=== PATIENT | male | born 1985 | race African-American/Black ===

== ENCOUNTER 2023-08-06 01:23 | Day surgery (SDC) | payer BC, SELFPAY ==
[2023-07-23 15:37] VITALS: BMI 19.1
--- NOTE | 2023-08-04 11:56 | SUR.PREOP ---
Patient called regarding upcoming procedure. Message left for pt regarding him coming in earlier.
--- NOTE | 2023-08-06 10:55 | P.PNAN_ITS ---
Anes - Initial Pre Proc Eval Procedure: Operation Date: 08/06/23 14:30 Proposed Procedures p Flexible Sigmoidoscopy - Erich Dubon MD Date/Time: 08/06/23 10:55 Surgeon: Erich Dubon MD Pre Op Diagnosis: Ulcerative (chronic) proctitis Patient Data Age: 38 Gender: M Height: 1.75 m Weight: 58.6 kg Allergies Allergy/AdvReac Type Severity Reaction Status Date / Time No Known Allergies Allergy Verified 07/23/23 15:54 Home Medications Medication Instructions Recorded Confirmed Type No Home Medications 07/23/23 07/23/23 History Patient hx anesthesia problems: none Family hx anesthesia problems: none Results Review: All pre-operative results and documents have been reviewed as part of the pre- operative evaluation. [facility], [facility] Past Medical History Medical History Ulcerative proctitis Social History Social History Social History: Smoking status: Never smoker Second hand tobacco smoke exposure: No Alcohol intake: never Substance use: never Substance use type: does not use Lack of Transportation: No Lack of Food: Never True Current Housing: I Have Housing Concerned About Future Housing: No Difficulty Paying Gas/Electric Bills: No Difficulty Paying for Meds: No Currently Unemployed: No Education: Decline to Answer Difficulty w/ Childcare or Family Care: No Living arrangements: with family Occupation/Education: occupation Gender identity (if verbalized by the patient): Male Sexual Orientation (if Verbalized by the Patient): Straight or Heterosexual Spiritual care concerns: No Anes - Eval Final PreProcedure Day of Procedure 08/06/23 10:55 Patient weight: normal Heart: regular rate and rhythm Lungs: clear to auscultation Airway: Mallampati scale class II Neurological: alert and oriented Last oral intake: >/= 8 hours ASA classification: II Emergent: no Anesthetic plan: proceed Anesthesia type and monitoring: general GIVS and standard monitoring Results Review: All pre-operative results and documents have been reviewed as part of the pre- operative evaluation. Informed Consent: The patient's anesthetic plan and its attendant risks and benefits were discussed with the patient/family/POA. Questions were solicited and answers pr ovided to the satisfaction of the patient/family/POA.
[2023-08-06 11:00] VITALS: BP 106/72; PULSE 77; RESP 20; TEMP 36.6; O2SAT 100; BMI 18.6
--- NOTE | 2023-08-06 11:26 | SUR.PREOP ---
Pt requesting no anesthesia. Dr. Moyer and Dr. Lao at bedside to discuss.
--- NOTE | 2023-08-06 11:29 | WPDHPUPDATE1 ---
History and Physical Update Update Date/Time: 08/06/23 11:29 History and Physical has been reviewed, including an updated exam of the patient. There are NO changes in the patient's condition. Risks, benefits, and alternatives have been discussed and questions answered. Patient agrees to proceed with procedure.
[2023-08-06] MEDS: LACTATED RINGERS 1,000 ML 150 ML IV CONT (11:32)
[2023-08-06 11:37] VITALS: BP 111/71; PULSE 68; RESP 16; O2SAT 100
[2023-08-06 11:42] VITALS: BP 111/77; PULSE 76; RESP 18; O2SAT 100
[2023-08-06 11:45] VITALS: BP 101/64; PULSE 78; RESP 20; O2SAT 100
[2023-08-06 11:50] VITALS: BP 110/67; PULSE 68; RESP 23; O2SAT 100
--- NOTE | 2023-08-06 12:10 | SUR.PHASEII ---
Patient did not receive anesthesia, patient denies pain or shortness of breath at this time, vital signs stable, patient and family verbalized understanding of all discharge instructions, IV discontinued without difficulty.
== END 2023-08-06 12:15 | disposition home or self-care (01) ==
PROVIDERS: PCP Family Medicine; Visit Provider Internal Medicine Gastroenterology
PROC: 0DJD8ZZ Inspection of Lower Intestinal Tract, Via Natural or Artificial Opening Endoscopic (ICD-10-PCS; CPT 45330; principal; 2023-08-06 14:30)
DX: K51.20 Ulcerative (chronic) proctitis without complications (principal)
CPT/HCPCS: 45331; 88305; J7120

== ENCOUNTER 2023-09-13 17:36 | Outpatient (CLI) | payer SELFPAY ==
[2023-09-13 18:58] LABS: Influenza A QL RT-PCR Positive (Negative); Influenza B QL RT-PCR Negative (Negative); RSV RNA, RT-PCR Negative (Negative); SARS-CoV-2 RNA PCR Negative (Negative)
== END 2023-09-13 17:37 | disposition home or self-care (01) ==
LOC: ANHLAB 17:39
PROVIDERS: PCP Family Medicine; Visit Provider Physician Assistant
DX: J02.9 Acute pharyngitis, unspecified (principal); Z20.822 Contact with and (suspected) exposure to COVID-19
CPT/HCPCS: 87637